=== PATIENT | male | born 1945 | race Caucasian/White ===

== ENCOUNTER 2019-08-14 03:40 | Emergency (ER) | payer MEDICARE, OTHER ==
[2019-08-14] MEDS ORDERED: Ondansetron 4 MG Tab.DIS PO ONE (04:01)
[2019-08-14] MEDS ORDERED: Lactated Ringers 1,000 ML IV ONE (04:01)
--- NOTE | 2019-08-14 04:07 | EDM.PDOC ---
ED HPI GENERAL MEDICAL PROBLEM - General Chief Complaint: Syncope Stated Complaint: MED[facility] Time Seen by Provider: 08/14/19 03:55 Source of Information: Reports: Patient, EMS, Family History Limitations: Reports: No Limitations - History of Present Illness INITIAL COMMENTS - FREE TEXT/NARRATIVE: 74 yo male on no prescription meds awoke tonight with leg cramps and decided to go into the bathroom to get a drink of water assuming he might be dehydrated. Once he got in the bathroom he developed nausea and vomited. He thinks at that point he sat down on the toilet and then lowered himself to the ground likely losing consciousness. Later he awoke lying on the floor and called out to his waking her from sleep. She soon called EMS who transported with stable khloe lawson and a complaint only of mild nausea. He has not had any hematemesis, melena, diarrhea, fever, chest pain or SOB. He did place 18 holes of golf yesterday and thinks he didn't drink enough water. Onset: Today, Sudden Onset Date: 08/14/19 Onset Time: 00:30 Duration: Hour(s):, Improving Location: Reports: Generalized Quality: Reports: Other (no pain except for that associated with his leg cramps) Severity: Moderate Improves with: Reports: Other (? time, no longer having cramps) Worsens with: Reports: Other (? dehydration) Context: Reports: Other (See HPI) Associated Symptoms: Reports: Nausea/Vomiting Treatments MACADAM RAKER: Reports: Other (see below) Other Treatments MACADAM RAKER: 8mg Zofran IVPUSH neck pain Pain Score (Numeric/FACES): 3 - Related Data Allergies Allergy/AdvReac Type Severity Reaction Status Date / Time No Known Allergies Allergy Verified 08/14/19 04:06 Home Meds: Home Meds Aspirin [Iwona Chewable] 81 mg PO DAILY 08/14/19 [History] Cyanocobalamin (Vitamin B-12) [Vitamin B-12] 1,000 mcg PO DAILY 08/14/19 [History] Glucosamine [Glucosamine Sulfate] 1,000 mg PO DAILY 08/14/19 [History] ED ROS GENERAL - Review of Systems Review Of Systems: See Below Constitutional: Reports: Malaise, Weakness HEENT: Reports: No Symptoms Respiratory: Reports: No Symptoms Cardiovascular: Reports: No Symptoms Endocrine: Reports: No Symptoms GI/Abdominal: Reports: Nausea, Vomiting (x one). Denies: Abdominal Pain, Black Stool, Bloody Stool, Constipation, Diarrhea, Distension, Hematemesis, Hematochezia, Melena : Reports: No Symptoms Musculoskeletal: Reports: No Symptoms Skin: Reports: No Symptoms Neurological: Reports: Syncope Psychiatric: Reports: No Symptoms - Physical Exam Exam: See Below Exam Limited By: No Limitations General Appearance: Alert, WD/WN, No Apparent Distress Eye Exam: Bilateral Eye: EOMI, Normal Inspection, PERRL Ears: Normal External Exam, Normal Canal, Hearing Grossly Normal Nose: Normal Inspection, No Blood Throat/Mouth: Normal Inspection, Normal Lips, Normal Oropharynx, Normal Voice, No Airway Compromise Head Exam: Atraumatic, Normocephalic Neck: Normal Inspection Respiratory/Chest: No Respiratory Distress, Lungs Clear, Normal Breath Sounds, No Accessory Muscle Use Cardiovascular: Regular Rate, Rhythm, No Edema, Bradycardia GI/Abdominal: Normal Bowel Sounds, Soft, Non-Tender, No Distention Neuro Exam (Abbreviated): Alert, Oriented, CN II-XII Intact, Normal Cognition, No Motor/Sensory Deficits Extremities: Normal Inspection, Normal Range of Motion, Non-Tender, No Pedal Edema Psychiatric: Normal Affect, Normal Mood Skin Exam: Warm, Dry, Intact, Normal Color, No Rash EKG INTERPRETATION EKG Date: 08/14/19 Time: 04:45 Rhythm: NSR Rate (Beats/Min): 50 [place]: Normal P-Wave: Present QRS: Normal ST-T: Normal QT: Normal Comparison: NA - No Prior EKG Course - Vital Signs Last Recorded V/S: Last Vital Signs Temp 36.1 C 08/14/19 04:01 Pulse 58 L 08/14/19 05:04 Resp 14 08/14/19 05:04 BP 119/65 08/14/19 05:04 Pulse Ox 99 08/14/19 05:04 - Orders/Labs/Meds Orders: Active Orders 24 hr Category Date Time Status Cardiac Monitoring [RC] .As Directed Care 08/14/19 04:42 Active EKG Documentation Completion [RC] ASDIRECTED Care 08/14/19 04:43 Active EKG 12 Lead [EK] Routine Ther 08/14/19 04:42 Ordered Labs: Laboratory Tests 08/14/19 08/14/19 Range/Units 04:04 04:12 Sodium 143 (140-148) mmol/L Potassium 3.4 L (3.6-5.2) mmol/L Chloride 106 (100-108) mmol/L Carbon Dioxide 25 (21-32) mmol/L Anion Gap 15.4 H (5.0-14.0) mmol/L BUN 22 H (7-18) mg/dL Creatinine 1.0 (0.8-1.3) mg/dL Est Cr Clr Drug Dosing 59.37 mL/min Estimated GFR (MDRD) > 60 (>60) Glucose 108 H (74-106) mg/dL Calcium 8.2 L (8.5-10.1) mg/dL Magnesium 2.1 (1.8-2.4) mg/dL Troponin I < 0.017 (0.000-0.056) ng/mL Meds: Medications Discontinued Medications Generic Name Dose Route Start Last Admin Trade Name Freq PRN Reason Stop Dose Admin Lactated Ringer's 1,000 mls @ 1,000 mls/hr 08/14/19 04:01 08/14/19 04:26 Ringers, Lactated IV 08/14/19 05:00 1,000 mls/hr BOLUS ONE Administration Ondansetron HCl 4 mg 08/14/19 04:01 08/14/19 04:27 Zofran Odt PO 08/14/19 04:02 Not Given ONETIME ONE Potassium Chloride 40 meq 08/14/19 04:51 08/14/19 04:59 Potassium Chloride PO 08/14/19 04:52 40 meq ONETIME ONE Administration Departure - Departure Time of Disposition: 05:20 Disposition: Home, Self-Care 01 Condition: Fair Clinical Impression: Hypokalemia, Mild dehydration Syncope Qualifiers: Syncope type: unspecified Qualified Code(s): R55 - Syncope and collapse - Discharge Information *PRESCRIPTION DRUG MONITORING PROGRAM REVIEWED*: Not Applicable *COPY OF PRESCRIPTION DRUG MONITORING REPORT IN PATIENT DAGO: Not Applicable Referrals: PCP,None [Primary Care Provider] - Forms: ED Department Discharge Additional Instructions: Return for heart monitor and follow directions for use. Recheck in the clinic in a week with a provider of your choice and have your potassium rechecked. Return if worse. Drink enough fluids so that your urine is light yellow in color. Sepsis Event Note (ED) - Evaluation Sepsis Screening Result: No Definite Risk - Focused Exam Vital Signs: Vital Signs Temp Pulse Resp BP Pulse Ox 08/14/19 05:04 58 L 14 119/65 99 08/14/19 04:01 36.1 C 49 L 14 126/64 100 08/14/19 03:46 36.1 C 49 L 14 126/64 100 - My Orders Last 24 Hours: My Active Orders 08/14/19 04:42 Cardiac Monitoring [RC] .As Directed EKG 12 Lead [EK] Routine 08/14/19 04:43 EKG Documentation Completion [RC] ASDIRECTED - Assessment/Plan Last 24 Hours: My Active Orders 08/14/19 04:42 Cardiac Monitoring [RC] .As Directed EKG 12 Lead [EK] Routine 08/14/19 04:43 EKG Documentation Completion [RC] ASDIRECTED
[2019-08-14] MEDS ORDERED: Potassium Chloride 10 MEQ Cap.ER PO ONE (04:51)
== END 2019-08-14 05:56 | disposition home or self-care (01) ==
LOC: JP.ED 03:40
DX: E87.6 Hypokalemia (principal); E86.0 Dehydration; Z79.82 Long term (current) use of aspirin
CPT/HCPCS: 36415; 80048; 83735; 84484; 93005; 96360; 99284; A9270; J7120; 93010; 99283